=== PATIENT | male | born 1965 | race Caucasian/White ===

== ENCOUNTER → 2017-05-13 | Outpatient (CLI) | payer OTHER ==
--- NOTE | 2017-05-13 18:10 | PCVCIMAG ---
APPROVED REPORT Study performed: 05/13/2017 16:30:09 EXAM: Comprehensive 2D, Doppler, and color-flow Echocardiogram Patient Location: Echo lab Status: routine BSA: 1.75 HR: 80 bpmBP: 164/72 mmHg Rhythm: NSR Other Information Study Quality: Adequate Risk Factors: Cardiac Risk Factors: HTN Indications Murmur 2D Dimensions LVEF(%): 34.65 (>50%) IVSd: 12.14 (7-11mm) LVDd: 56.33 mm PWd: 11.48 (7-11mm)Ascending Ao: 44.97 (22-36mm) LVDs: 46.89 (25-40mm) Left Atrium: 37.45 (27-40mm) Aortic Root: 42.26 mm LV Single Plane 4CH: 49.12 % LV Single Plane 2CH: 49.87 %Ruby's LVEF: 49.49 % Biplane EF: 50.1 % Volumes Left Atrial Volume (Systole) Single Plane 4CH: 56.05 mLSingle Plane 2CH: 86.88 mL LA ESV Index: 43.00 mL/m2 Aortic Valve AoV Peak Omkar.: 1.62 m/s AO Peak Gr.: 10.53 mmHgLVOT Max P.51 mmHg LVOT Max V: 0.94 m/s AI Vmax: 5.42 m/s AI Cheshire: 5.82 m/s2 AI PHT: 271.79 ms Mitral Valve E/A Ratio: 0.7 MV Decel. Time: 178.38 ms MV E Max Omkar.: 0.61 m/s MV A Omkar.: 0.90 m/s IVRT: 117.65 ms Pulmonary Valve PV Peak Omkar.: 0.85 m/sPV Peak Gr.: 2.92 mmHg Pulmonary Vein P Vein S: 0.38 m/sP Vein A: 0.42 m/s P Vein D: 0.57 m/sP Vein A Dur.: 134.9 msec P Vein S/D Ratio: 0.67 Left Ventricle The left ventricle is normal size. There is normal LV segmental wall motion. Mild concentric left ventricular hypertrophy. Left ventricular systolic function is borderline lower limits of normal. LVEF is 45-50%. Grade I - abnormal relaxation pattern. Right Ventricle The right ventricle is normal size. The right ventricular systolic function is normal. Atria Left atrium is mildly dilated. The right atrium size is normal. Aortic Valve The aortic valve is bicuspid. Moderate to severe aortic regurgitation present. There is no aortic valvular stenosis. Mitral Valve The mitral valve is normal in structure. There is no mitral valve regurgitation noted. No evidence of mitral valve stenosis. Tricuspid Valve The tricuspid valve is normal in structure. There is no tricuspid valve regurgitation noted. Pulmonic Valve The pulmonary valve is normal in structure. There is mild pulmonic valvular regurgitation. Great Vessels The aortic root is mildly dilated 4.5cm IVC is normal in size and collapses with >50% inspiration Pericardium There is no pericardial effusion. <Conclusion> The left ventricle is normal size. Mild concentric left ventricular hypertrophy. LVEF is 45-50%. Grade I - abnormal relaxation pattern. The right ventricle is normal size. Left atrium is mildly dilated. The aortic valve is bicuspid. Moderate to severe aortic regurgitation present. There is no aortic valvular stenosis. There is no mitral valve regurgitation noted. There is no tricuspid valve regurgitation noted. The aortic root is mildly dilated 4.5cm There is no pericardial effusion.
== END | disposition home or self-care (01) ==
LOC: PCVCIMAG 16:27
PROVIDERS: ATTEND Internal Medicine
DX: I35.1 Nonrheumatic aortic (valve) insufficiency (principal); I10 Essential (primary) hypertension
CPT/HCPCS: 93306

== ENCOUNTER → 2017-05-25 | Outpatient (CLI) | payer OTHER ==
[~2017-05-25] MED LIST: ACETAMINOPHEN 500 MG TABLET PO ONE; DIAZEPAM 10 MG TABLET. ONE; IOHEXOL 350 MG/ML 100 ML VIAL. ONE; IOHEXOL 350 MG/ML 50 ML VIAL. ONE; IV NORMAL SALINE 500ML BAG 500 ML ONE; LIDOCAINE 1% Multi-Dose 20 ML VIAL. ONE; MIDAZOLAM HCL/PF 2 MG/2 ML VIAL. ONE; fentaNYL PF VIAL 100 MCG/2 ML VIAL ONE
--- NOTE | 2017-05-25 16:05 | PCVCINTER ---
APPROVED REPORT Patient Details Patient Status: Out-Patient Room #: The patient is a 52 year-old Male Event Personnel Kevin Krishnamurthy MD, Rj Pineda RN, María Elena George RT(R), Sofy Coombs RT(R)() Procedures Performed Left heart catheterization, selective left and right coronary angiography, aortic root injection, supervision of conscious sedation Indication Valvular heart disease, Murmur, Pre-op clearance Procedure Narrative The patient was brought electively to the Cardiac Catheterization Laboratory and was prepped and draped in a sterile manner. The right femoral was infiltrated with 1% Lidocaine subcutaneous anesthesia. A 4fr sheath was inserted into the right femoral artery. Coronary angiography was performed using coronary diagnostic catheters. The right coronary system was accessed and visualized with a 4fr JR4 Diagnostic catheter. The left coronary system was accessed and visualized with a 4 fr JL4 Diagnostic catheter. The left ventricle was accessed and visualized with a 4fr 145 Pigtail Diagnostic catheter. Left ventricular/Aortic Valve gradient assessed via catheter pullback. An aortogram of the Arch/Root was performed. Hemostasis was obtained with manual pressure following sheath removal without any complications. The patient tolerated the procedure well and there were no complications associated with the procedure. There was no hematoma. Aortic root injection was performed utilizing the injector to characterize descending aorta and the extent of aortic insufficiency. Findings: Angiographic evidence of a mildly enlarged ascending aorta with severe aortic insufficiency noted Intraoperative Conscious Sedation Coronary Angiography The patient's coronary anatomy is right dominant. Diagnostic Cath Left MainNormal origin and caliber bifurcates left anterior descending left circumflex free of high-grade disease LADModerate caliber type II vessel which rapidly tapers to a string at the apex. Giving rise to diagonal and septal branches as it courses in the anterior interventricular sulcus. No significant obstructive lesions are noted. Diagonal 1Small-caliber vessel free of high-grade disease CircumflexModerate caliber vessel which gives rise to an early moderate size first marginal branch. Circumflex proper then continues posteriorly giving rise to lateral wall branches all of which are free of high-grade disease [id number] caliber vessel free of high-grade stenosis present. Right CoronaryModerate to large caliber vessel low normal origin and dominant. Courses in the AV groove posteriorly to the crux of the heart where it gives rise to posterior descending and posterior circulation all of which are free of high-grade stenosis Left Ventriculography Left Ventriculography was not performed. Hemodynamics The aortic pressure is 153/74 mmHg with a mean of 105 mmHg. The left ventricular pressure is 145/9 mmHg with a mean of 20 mmHg. Conclusion 1. Normal coronary arteries 2. Mildly dilated ascending aorta 3. Severe aortic insufficiency Recommendations Valve Surgery
== END | disposition home or self-care (01) ==
LOC: PCVCINTER 10:56
PROVIDERS: ATTEND Nuclear Medicine Nuclear Cardiology
DX: I35.1 Nonrheumatic aortic (valve) insufficiency (principal)
CPT/HCPCS: 93458; 99152; 99153; C1751; C1769; C1894; J1644; J2250; J3010; J7040; Q9967